=== PATIENT | male | born 1980 | race Two or more races ===

== ENCOUNTER 2016-05-02 02:21 | Emergency (ER) | payer SELFPAY ==
[~2016-05-02] VITALS: Ht 177.8 cm; Wt 84.4 kg
[2016-05-02 02:24] VITALS: BP 126/71
[2016-05-02] MEDS ORDERED: BUPIVACAINE 0.5 % PF 150 MG/30 ML VIAL ONE (02:47)
[2016-05-02] MEDS ORDERED: PENICILLIN V POTASSIUM 500 MG TABLET PO ONE ×2 (02:54→03:00)
[2016-05-02] MEDS ORDERED: IBUPROFEN 400 MG TABLET PO ONE (03:00)
[2016-05-02] MEDS ORDERED: IBUPROFEN 400 MG TABLET ONE (03:10)
== END 2016-05-02 03:19 | disposition home or self-care (01) ==
LOC: ER 02:21
DX: K08.89 Other specified disorders of teeth and supporting structures (principal)
CPT/HCPCS: A4606; J3490; Z7610